=== PATIENT | male | born 1955 | race Caucasian/White ===

== ENCOUNTER 2018-11-05 08:29 | Emergency (ER) | payer SELFPAY ==
[2018-11-05] MEDS ORDERED: HYDROcodone/Acetaminophen 5/325 mg Tablet ONE (09:23)
[2018-11-05] MEDS ORDERED: Sodium Chloride 0.9% 1,000 ML ONE ×2 (09:23→10:08)
[2018-11-05] MEDS ORDERED: methylPREDNISolone Sod Succ/PF 125 MG/2 ML VIAL ONE (09:23)
--- NOTE | 2018-11-05 09:34 | RAD ---
EXAM: XR Chest 1 View Portable PROVIDED CLINICAL HISTORY: Weakness COMPARISON: None FINDINGS: Evaluation is limited by patient body habitus. The lungs are hypoinflated. Cardiac silhouette is not well visualized. No large effusion or pneumothorax. No lobar consolidation is definitely apparent. IMPRESSION: Limited exam.
[2018-11-05 09:46] LABS: Hemoglobin 15.7 g/dL (14.0-18.0); Mean Corpuscular HGB CONC 32.9 g/dL (32.0-36.0); Mean Corpuscular Hemoglobin 31.9 pg (27.0-31.0); Mean Platelet Volume 7.7 fL (7.4-10.4); Platelet Count 100 thou/uL (130-400); RBC Distribution Width 14.5 % (11.5-14.5); Red Blood Cell (RBC) Count 4.94 mill/uL (4.70-6.10); White Blood Cell (WBC) Count 4.7 thou/uL (4.8-10.8)
[2018-11-05 09:52] LABS: ALT (SGPT) 99 U/L (8-55); AST (SGOT) 144 U/L (5-34); Albumin 4.2 g/dL (3.4-4.8); Alcohol 267 mg/dL (Less than 10); Alkaline Phosphatase 96 U/L (40-150); Anion Gap 21 mmol/L (10-20); BUN (Urea Nitrogen) 4 mg/dL (8.4-25.7); Bilirubin, Total 0.6 mg/dL (0.2-1.2); Calc. Creatinine Clearance 0 mL/min (70-130); Calcium 8.6 mg/dL (7.8-10.44); Carbon Dioxide 22 mmol/L (23-31); Chloride 98 mmol/L (98-107); Estimated GFR-MDRD Greater than 90; Globulin 2.6 g/dL (2.4-3.5); Glucose 173 mg/dL (80-115); Potassium 3.5 mmol/L (3.5-5.1); Protein, Total 6.8 g/dL (5.8-8.1); Sodium 137 mmol/L (136-145)
[2018-11-05 09:57] LABS: Eosinophils 3 % (0-10); Lymphocytes 28 % (21-51); MDiff Complete? YES; Monocytes 2 % (0-10); Neutrophil 57 % (42-75); Platelet Morphology Comment Appears Decreased; RBC Morphology Normal; Reactive Lymphocytes 9 % (0-10)
[2018-11-05] MEDS ORDERED: Ketorolac Tromethamine 30 MG/ML VIAL ONE (10:08)
[2018-11-05] MEDS ORDERED: Thiamine HCl 200 MG/2 ML VIAL ONE (10:42)
[2018-11-05] MEDS ORDERED: Multivit, Adult Inj 10 ML VIAL ONE (10:42)
[2018-11-05] MEDS ORDERED: Dextrose 5 %-0.45 % NaCl 1,000 ML ONE (10:42)
== END 2018-11-05 12:17 | disposition home or self-care (01) ==
LOC: NAV ERS 08:29
DX: M54.42 Lumbago with sciatica, left side (principal); F10.129 Alcohol abuse with intoxication, unspecified; E11.9 Type 2 diabetes mellitus without complications; I10 Essential (primary) hypertension; J44.9 Chronic obstructive pulmonary disease, unspecified; F17.210 Nicotine dependence, cigarettes, uncomplicated; Z79.84 Long term (current) use of oral hypoglycemic drugs; Z79.899 Other long term (current) drug therapy
CPT/HCPCS: 71045; 80053; 80307; 83605; 85025; 93005; 94760; 96361; 96374; 96375; J1885; J2930; J3411; J7042; J7050

== ENCOUNTER 2020-12-02 22:16 | Emergency (ER) | payer SELFPAY ==
[2020-12-02] MEDS ORDERED: Thiamine HCl 200 MG/2 ML VIAL ONE (22:45)
[2020-12-02] MEDS ORDERED: Sodium Chloride 0.9% 1,000 ML ONE (22:45)
[2020-12-02 22:59] LABS: ALT (SGPT) 104 U/L (8-55); AST (SGOT) 106 U/L (5-34); Albumin 4.2 g/dL (3.4-4.8); Alkaline Phosphatase 114 U/L (40-110); Anion Gap 23 mmol/L (10-20); BUN (Urea Nitrogen) 4 mg/dL (8.4-25.7); Bilirubin, Total 0.8 mg/dL (0.2-1.2); CK (CPK) 63 U/L (30-200); Calc. Creatinine Clearance 0 mL/min (70-130); Calcium 8.5 mg/dL (7.8-10.44); Carbon Dioxide 15 mmol/L (23-31); Chloride 92 mmol/L (98-107); Globulin 3.3 g/dL (2.4-3.5); Glucose 316 mg/dL (80-115); Lipase 13 U/L (8-78); Potassium 4.6 mmol/L (3.5-5.1); Protein, Total 7.5 g/dL (5.8-8.1); Sodium 125 mmol/L (136-145)
[2020-12-02] MEDS ORDERED: Aspirin Chewable 81 MG TAB ONE (23:01)
[2020-12-02 23:15] LABS: Band 1 % (5-11); Hemoglobin 19.3 g/dL (14.0-18.0); Lymphocytes 9 % (21-51); MDiff Complete? YES; Macrocytosis MODERATE=16-30 cells (100X) (0-5/hpf); Mean Corpuscular HGB CONC 31.9 g/dL (32.0-36.0); Mean Corpuscular Hemoglobin 33.1 pg (27.0-31.0); Mean Platelet Volume 9.2 fL (7.4-10.4); Monocytes 10 % (0-10); Myelocyte 1 % (0-0); Neutrophil 74 % (42-75); Platelet Count 197 thou/uL (130-400); Platelet Morphology Comment Appears Adequate; RBC Distribution Width 11.7 % (11.5-14.5); Reactive Lymphocytes 5 % (0-10); Red Blood Cell (RBC) Count 5.82 mill/uL (4.70-6.10); White Blood Cell (WBC) Count 11.1 thou/uL (4.8-10.8)
[2020-12-02 23:17] LABS: Amphetamine Not Detected (NotDetected); Benzodiazepine Screen Detected (NotDetected); Cocaine Metabolite Screen Not Detected (NotDetected); Methamphetamine Not Detected (NotDetected); Opiate Screen Not Detected (NotDetected); Phencyclidine (PCP) Not Detected (NotDetected); THC/Cannabinoid Screen Not Detected (NotDetected)
[2020-12-02 23:18] LABS: Barbiturates Screen Not Detected (NotDetected); Medtox Control Line Valid? VALID (VALID); Methadone Not Detected (NotDetected); Oxycodone Screen Not Detected (NotDetected); Tricyclic Screen Not Detected (NotDetected)
[2020-12-02] MEDS ORDERED: Mag-Al Plus 1200 MG/1200 MG/120 MG/30 ML UDCUP ONE (23:33)
[2020-12-02] MEDS ORDERED: Lidocaine Viscous Sol 2% 15 ml UD Cup ONE ×2 (23:33→23:34)
[2020-12-02] MEDS ORDERED: Morphine 4 MG/ML VIAL ONE (23:33)
[2020-12-03] MEDS ORDERED: Sodium Chloride 0.9% 1,000 ML ONE (00:27)
== END 2020-12-03 00:59 | disposition short-term general hospital (02) ==
LOC: NAV ERS 22:16
DX: R07.9 Chest pain, unspecified (principal); F10.20 Alcohol dependence, uncomplicated; Y90.2 Blood alcohol level of 40-59 mg/100 ml; E86.0 Dehydration; E87.1 Hypo-osmolality and hyponatremia; E11.9 Type 2 diabetes mellitus without complications; I10 Essential (primary) hypertension; J44.9 Chronic obstructive pulmonary disease, unspecified; F17.210 Nicotine dependence, cigarettes, uncomplicated; Z79.84 Long term (current) use of oral hypoglycemic drugs; Z79.899 Other long term (current) drug therapy
CPT/HCPCS: 71045; 80053; 80306; 80307; 82550; 83690; 83880; 84484; 85025; 93005; 96365; 96366; 96375; J2270; J3411; J7050

== ENCOUNTER 2020-12-30 16:17 | Emergency (ER) | payer SELFPAY ==
[2020-12-30 16:45] LABS: #Basophils 0.1 thou/uL (0.0-0.2); #Eosinphils 0.1 thou/uL (0.0-0.7); #Lymphocytes 1.9 thou/uL (1.20-3.40); #Monocytes 0.4 thou/uL (0.11-0.59); #Neutrophils 3.3 thou/uL (1.40-6.50); %Eosinophils 1.7 % (0.0-10.0); %Lymphocytes 32.9 % (21.0-51.0); %Monocytes 6.7 % (0.0-10.0); %Neutrophils 57.6 % (42.0-75.0); Hemoglobin 15.4 g/dL (14.0-18.0); Mean Corpuscular HGB CONC 31.7 g/dL (32.0-36.0); Mean Corpuscular Hemoglobin 32.7 pg (27.0-31.0); Mean Platelet Volume 7.6 fL (7.4-10.4); Platelet Count 104 thou/uL (130-400); RBC Distribution Width 11.6 % (11.5-14.5); Red Blood Cell (RBC) Count 4.71 mill/uL (4.70-6.10); White Blood Cell (WBC) Count 5.7 thou/uL (4.8-10.8)
[2020-12-30] MEDS ORDERED: Multivit, Adult Inj 10 ML VIAL ONE (16:53)
[2020-12-30] MEDS ORDERED: Dextrose 5 %-0.45 % NaCl 1,000 ML ONE (16:53)
[2020-12-30] MEDS ORDERED: Thiamine HCl 200 MG/2 ML VIAL ONE (16:53)
[2020-12-30 17:10] LABS: ALT (SGPT) 65 U/L (8-55); AST (SGOT) 78 U/L (5-34); Albumin 3.7 g/dL (3.4-4.8); Alkaline Phosphatase 102 U/L (40-110); Anion Gap 19 mmol/L (10-20); BUN (Urea Nitrogen) Less than 4 mg/dL (8.4-25.7); Bilirubin, Total 0.6 mg/dL (0.2-1.2); Calc. Creatinine Clearance 0 mL/min (70-130); Calcium 7.6 mg/dL (7.8-10.44); Carbon Dioxide 21 mmol/L (23-31); Chloride 99 mmol/L (98-107); Globulin 2.3 g/dL (2.4-3.5); Glucose 273 mg/dL (80-115); Potassium 3.3 mmol/L (3.5-5.1); Sodium 136 mmol/L (136-145)
[2020-12-30] MEDS ORDERED: Potassium Chloride 20 MEQ TAB ONE (17:51)
== END 2020-12-30 18:45 | disposition home or self-care (01) ==
LOC: NAV ERS 16:17
DX: F10.10 Alcohol abuse, uncomplicated (principal); E11.9 Type 2 diabetes mellitus without complications; I10 Essential (primary) hypertension; J44.9 Chronic obstructive pulmonary disease, unspecified; F17.210 Nicotine dependence, cigarettes, uncomplicated; Z79.899 Other long term (current) drug therapy
CPT/HCPCS: 36416; 80053; 85025; 96365; J3411; J7042

== ENCOUNTER 2021-11-21 12:21 | Emergency (ER) | payer SELFPAY ==
[2021-11-21] MEDS ORDERED: Lidocaine Viscous Sol 2% 15 ml UD Cup ONE (13:03)
[2021-11-21] MEDS ORDERED: Boostrix 0.5 ML (Tdap) VIAL ONE (13:03)
[2021-11-21 13:07] LABS: #Basophils 0.1 thou/uL (0.0-0.2); #Eosinphils 0.1 thou/uL (0.0-0.7); #Neutrophils 11.3 thou/uL (1.40-6.50); %Basophils 0.8 % (0.0-1.0); %Eosinophils 0.5 % (0.0-10.0); %Monocytes 6.9 % (0.0-10.0); %Neutrophils 77.9 % (42.0-75.0); Hemoglobin 16.5 g/dL (14.0-18.0); Mean Corpuscular HGB CONC 31.7 g/dL (32.0-36.0); Mean Corpuscular Hemoglobin 31.5 pg (27.0-31.0); Mean Corpuscular Volume 99.3 fL (78.0-98.0); Mean Platelet Volume 9.7 fL (7.4-10.4); Platelet Count 226 thou/uL (130-400); RBC Distribution Width 13.2 % (11.5-14.5); Red Blood Cell (RBC) Count 5.24 mill/uL (4.70-6.10); White Blood Cell (WBC) Count 14.5 thou/uL (4.8-10.8)
[2021-11-21] MEDS ORDERED: Sodium Chloride 0.9% 1,000 ML ONE ×2 (13:08→13:45)
[2021-11-21] MEDS ORDERED: Ondansetron PF 4 MG/2 ML Vial ONE (13:20)
[2021-11-21] MEDS ORDERED: Morphine 4 MG/ML VIAL ONE (13:20)
[2021-11-21 13:23] LABS: ALT (SGPT) 16 U/L (8-55); AST (SGOT) 14 U/L (5-34); Albumin 4.4 g/dL (3.4-4.8); Alkaline Phosphatase 82 U/L (40-110); Anion Gap 18 mmol/L (10-20); BUN (Urea Nitrogen) 8 mg/dL (8.4-25.7); Bilirubin, Total 0.5 mg/dL (0.2-1.2); Calc. Creatinine Clearance 0 mL/min (70-130); Calcium 10.1 mg/dL (7.8-10.44); Carbon Dioxide 24 mmol/L (23-31); Chloride 98 mmol/L (98-107); Globulin 3.3 g/dL (2.4-3.5); Glucose 209 mg/dL (80-115); Magnesium 1.9 mg/dL (1.6-2.6); Potassium 4.6 mmol/L (3.5-5.1); Protein, Total 7.7 g/dL (5.8-8.1); Sodium 135 mmol/L (136-145)
[2021-11-21 13:27] LABS: Bilirubin Negative (Negative); Blood, Urine Negative (Negative); Clarity Clear (Clear); Glucose, Urine (Dipstick) Negative (Negative); Ketone, Urine Negative (Negative); Leukocyte Negative (Negative); Nitrite Negative (Negative); Protein, Urine (Dipstick) 30 mg/dL (Neg-Trace); Urobilinogen 0.2 mg/dL (Less than 2)
[2021-11-21 13:29] LABS: RBC/HPF 0-3 HPF (0-3); Squamous Epithelial 0-3 HPF (0-3); WBC/HPF 0-3 HPF (0-3)
[2021-11-21] MEDS ORDERED: Cefepime 2 GM VIAL ONE (13:46)
[2021-11-21] MEDS ORDERED: Sodium Chloride 0.9% 500 ML ONE (13:46)
[2021-11-21] MEDS ORDERED: Sodium Chloride 0.9% 100 ML ONE (13:46)
[2021-11-21] MEDS ORDERED: Aspirin Chewable 81 MG TAB ONE (14:45)
[2021-11-21 14:46] LABS: SARS-CoV-2 NAA Rapid Test Not Detected (NotDetected)
[2021-11-21 15:55] LABS: Lactic Acid 1.8 mmol/L (0.5-2.2)
[2021-11-21 16:12] LABS: Troponin I Less than 0.010 ng/mL (< 0.028)
== END 2021-11-21 16:22 | disposition short-term general hospital (02) ==
LOC: NAV ERS 12:21
DX: A41.9 Sepsis, unspecified organism (principal); K04.7 Periapical abscess without sinus; R74.02 Elevation of levels of lactic acid dehydrogenase [LDH]; D72.829 Elevated white blood cell count, unspecified; Z20.822 Contact with and (suspected) exposure to COVID-19; E11.9 Type 2 diabetes mellitus without complications; I10 Essential (primary) hypertension; J44.9 Chronic obstructive pulmonary disease, unspecified; F17.210 Nicotine dependence, cigarettes, uncomplicated; Z79.899 Other long term (current) drug therapy
CPT/HCPCS: 71045; 80053; 81003; 81015; 83605; 83735; 83880; 84484; 85025; 85379; 87040; 87070; 87205; 90715; 93005; 94760; 96365; 96366; 96367; 96375; J0692; J2270; J2405; J3370; J3490; J7030; J7050; U0002

== ENCOUNTER 2024-08-02 03:11 | Emergency (ER) | payer SELFPAY ==
[2024-08-02 04:37] LABS: Acetaminophen Less than 10 mcg/mL (Less than 10); Alcohol Less than 10.0 mg/dL (Less than 10); Salicylate Less than 8.0 mg/dL (Less than 8.0)
== END 2024-08-02 06:58 | disposition expired ==
LOC: NAV ERS 03:11
DX: I46.9 Cardiac arrest, cause unspecified (principal); F17.210 Nicotine dependence, cigarettes, uncomplicated; I10 Essential (primary) hypertension; J44.9 Chronic obstructive pulmonary disease, unspecified
CPT/HCPCS: 80307; 99285